=== PATIENT | female | born 1955 | race Caucasian/White ===

== ENCOUNTER 2022-07-14 09:13 | Outpatient (CLI) | payer OTHER, SELFPAY ==
--- NOTE | ~2022-07-14 | MM_ITS ---
EXAMINATION: MM screening princess BI w aneudy HISTORY: Screening mammogram TECHNIQUE: Craniocaudal and mediolateral oblique 3-D tomosynthesis images were obtained and synthetic 2-D images were generated. CAD analysis was submitted and interpreted. COMPARISON: No prior mammogram is available for comparison at this institution. BREAST PARENCHYMAL COMPOSITION: There are scattered areas of fibroglandular density. FINDINGS: RIGHT BREAST: No suspicious mass, calcification, or architectural distortion are identified to sugges t malignancy. LEFT BREAST: An asymmetry is present in the anterior third of the breast in line with the nipple axis on the mediolateral oblique view. IMPRESSION: 1. Left breast asymmetry which may represent the patient's baseline however no comparison is currentl y available. 2. Comparison with prior mammograms is necessary. BI-RADS Category 0: Incomplete: Needs comparison with prior mammograms. Reviewed, dictated and finalized at location A. UREMENT SUPERINTENDENT IMPRESSION: 1. Left breast asymmetry which may represent the patient's baseline however no comparison is currently available. 2. Comparison with prior mammograms is necessary. BI-RADS Category 0: Incomplete: Needs comparison with prior mammograms.
== END 2022-07-14 09:14 | disposition home or self-care (01) ==
PROVIDERS: Visit Provider Obstetrics & Gynecology
DX: Z12.31 Encounter for screening mammogram for malignant neoplasm of breast (principal); R92.8 Other abnormal and inconclusive findings on diagnostic imaging of breast
CPT/HCPCS: 77063; 77067

== ENCOUNTER 2023-03-09 10:37 | Emergency (ER) | payer OTHER, SELFPAY ==
--- NOTE | ~2023-03-09 | CT_ITS ---
EXAMINATION: CT abdomen pelvis w con DATE: 03/09/2023 13:38 INDICATION: Right lower quadrant abdominal pain and leukocytosis TECHNIQUE: Computed tomography (CT) of the abdomen and pelvis was performed with 100 mL Omnipaque-350 intravenous contrast. Automated exposure control and iterative reconstruction technique were employe d. The dose-length product was 511.76 mGy-cm. COMPARISON: None FINDINGS: Mild lingular discoid atelectasis. Heart size is normal. No pericardial or pleural effusion. Cholecys tectomy clips the gallbladder fossa. Mild focal hepatic steatosis at the ligamentum teres. Spleen, pa ncreas and bilateral kidneys are normal. There appears to be fusion across the midline of the otherwi se normal-appearing bilateral adrenal glands. Small bowel and appendix are normal. Sigmoid and descen ding colon predominant diverticulosis with focal prominent wall thickening and surrounding inflammato ry stranding at the mid sigmoid colon consistent with diverticulitis. Bladder, anteverted uterus are normal. Bilateral ovarian follicles a larger on the left measuring 1.7 cm. Small amount of either abeba ctive or physiologic free fluid in the cul-de-sac. No abscess or free intraperitoneal gas. No patholo gically enlarged abdominal or pelvic lymphadenopathy. 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 Mild lumbar and lower thoracic spondylosis. Mild right and moderate left hip osteoarthritis. IMPRESSION: 1. Radiographically uncomplicated sigmoid diverticulitis. Reviewed, dictated and finalized at location A.
[2023-03-09 10:43] VITALS: BP 149/71; PULSE 104; RESP 18; TEMP 36.6; O2SAT 97
[2023-03-09 11:01] LABS: Basophils Percent Auto 0.2 % (0.2-1.2); Eosinophils Percent Auto 0.1 % (0-4.4); Hematocrit 45.6 % (37.0-47.0); Hemoglobin 14.9 g/dL (12.0-15.0); Immature Granulocyte Absolute 0.04 K/mm3 (0.00-0.031); Immature Granulocyte Percent A 0.3 % (0-0.5); Lymphocytes Absolute Auto 1.51 K/mm3 (0.9-3.2); Lymphocytes Percent Auto 11.6 % (18.3-44.2); Mean Corpuscular HGB Conc 32.7 g/dl (32-36); Mean Corpuscular Hemoglobin 30.8 pg (26-34); Mean Corpuscular Volume 94.2 fl (80-100); Mean Platelet Volume 10.4 fl (7.4-10.4); Monocytes Absolute Auto 0.8 K/mm3 (0.1-0.6); Monocytes Percent Auto 6.2 % (2.6-8.5); Neutrophils Absolute Auto 10.6 K/mm3 (1.3-6.7); Neutrophils Percent Auto 81.6 % (45.5-73.1); Platelet Count Result 215 k/mm3 (150-375); Red Blood Count 4.84 M/mm3 (4.2-5.4); Red Cell Distribution Width 12.2 % (11.5-14.5)
[2023-03-09 11:11] LABS: Alanine Aminotransferase 36 U/L (6-35); Albumin Level 4.9 g/dL (3.5-5.1); Alkaline Phosphatase 94 U/L (38-126); Anion Gap 10 mmol/L (8-16); Aspartate Amino Transferase 28 U/L (14-36); Bilirubin,Total 1.2 mg/dL (0.2-1.3); Blood Urea Nitrogen 14 mg/dL (7-17); Calcium 9.5 mg/dL (8.4-10.2); Carbon Dioxide 25 mmol/L (22-30); Chloride 101 mmol/L (98-107); Estimated CRCL calculation 62 ml/min; Estimated Glomerular Filt Rate > 60; Glucose 119 mg/dL (65-110); Lipase 57 U/L (23-300); Potassium 3.8 mmol/L (3.4-5.0); Sodium 136 mmol/L (137-145)
[2023-03-09 11:58] LABS: Appearance Urine Cloudy (Clear); Bacteria Urine None Seen /hpf; Bilirubin Urine Negative (Negative); Blood Urine 1+ (Negative); Color Urine Dark Yellow (Yellow); Glucose Urine UA Negative (Negative); Ketones Urine Trace mg/dL (Negative); Leukocyte Esterase Ur 1+ LEU/UL (Negative); Nitrate Urine Negative (Negative); Non Pathogenic Casts 0-2; Protein Urine 1+ mg/dL (Negative); Specific Grav Ur 1.028 (1.001-1.035); Squamous Epithelial Cell Urine Moderate /hpf (Few)
[2023-03-09 12:04] LABS: Add Urine Microscopic? YES
--- NOTE | 2023-03-09 13:16 | ED.ABDPAIN ---
HPI - Abdominal Pain General Chief Complaint: Abdominal Pain <ALICE Diaz Last Filed: 03/09/23 13:20> Stated Complaint: lower abd pain <ALICE Diaz Last Filed: 03/09/23 13:20> Time Seen by Provider: 03/09/23 13:26 <ALICE Diaz Last Filed: 03/09/23 13:20> Source: patient <ALICE Diaz Last Filed: 03/09/23 13:20> Mode of arrival: ambulatory <ALICE Diaz Filed: 03/09/23 13:20> Limitations: no limitations <ALICE Diaz Filed: 03/09/23 13:20> History of Present Illness HPI narrative: Patient is a 67-year-old female who presents to the ED with lower abdominal pain. Patient reports she developed pain 2 to 3 days ago, became worse last night, intermittent, cramping with sharp stabbing pains. Pain worse in her midline lower abdomen, off to the right side. Nausea last night, no vomiting. Thought she may be constipated and took a Dulcolax. Reported having increased abdominal pain with bowel movement last night. Went to an urgent care this morning was referred here for further evaluation. Denies fevers, dysuria, hematuria, rectal bleeding, melena. Notes history of previous UTIs. Denies history of diverticulitis. <ALICE Diaz Last Filed: 03/09/23 13:20> Related Data Allergies/Adverse Reactions: Allergies Allergy/AdvReac Type Severity Reaction Status Date / Time Sulfa (Sulfonamide Allergy Mild Verified 08/18/10 17:57 Antibiotics) <ALICE Diaz Last Filed: 03/09/23 13:20> Review of Systems Review of Systems: CONSTITUTIONAL: Denies fever, chills, or sweats. GASTROINTESTINAL: See HPI. GENITOURINARY: Denies dysuria or hematuria. MUSCULOSKELETAL: Denies back pain, joint pain, or myalgia. <ALICE Diaz Filed: 03/09/23 13:20> All systems reviewed & are unremarkable except as noted in HPI and below <Renu Guadalupe PA-C - Last Filed: 03/09/23 13:20> Exam Narrative: GENERAL: Well appearing, obese with BMI of 30.2, non-toxic, in no acute distress. RESPIRATORY: Airway patent, respirations nonlabored. Clear to auscultation bilaterally. CARDIOVASCULAR: RRR. Radial pulses 2+ and equal bilaterally. ABDOMINAL: Soft, tenderness in suprapubic region and right lower quadrant, reproducing pain. Normoactive BS. MUSCULOSKELETAL: Moves all extremities. No gross deformities. NEURO: A&O X3. Speech clear. No ataxic movements. PSYCHIATRIC: Appropriate mood and affect. Normal interaction. <Renu Guadalupe PA-C - Last Filed: 03/09/23 13:20> GENERAL: Well appearing, obese with BMI of 30.2, non-toxic, in no acute distress. RESPIRATORY: Airway patent, respirations nonlabored. Clear to auscultation bilaterally. CARDIOVASCULAR: RRR. Radial pulses 2+ and equal bilaterally. ABDOMINAL: Soft, tenderness in suprapubic region and right lower quadrant, reproducing pain. Normoactive BS. MUSCULOSKELETAL: Moves all extremities. No gross deformities. NEURO: A&O X3. Speech clear. No ataxic movements. PSYCHIATRIC: Appropriate mood and affect. Normal interaction. Physician exam GENERAL: Well-appearing, well-nourished, and in no acute distress. HEAD: Normocephalic, atraumatic. CHEST: Clear to auscultation. No respiratory distress. HEART: Regular rate and rhythm. Normal peripheral pulses. ABDOMEN: Soft, tender to palpation right lower quadrant without guarding, nondistended. EXTREMITIES: Normal range of motion. No edema. SKIN: Warm, dry, no rash. NEURO: Alert and oriented x3. PSYCH: Normal mood and affect. <Jeet Muñoz MD - Last Filed: 03/09/23 19:26> Course Course Emergency Course: Patient educated on diagnosis and treatment plan. Verbalized understanding. Discharge home. <Jeet Muñoz MD - Last Filed: 03/09/23 19:26> Vital Signs Vital signs: Vital Signs Temperature 97.9 F 03/09/23 10:43 Puls
[2023-03-09 15:14] VITALS: BP 114/58; PULSE 94; RESP 18; O2SAT 98
== END 2023-03-09 15:18 | disposition home or self-care (01) ==
PROVIDERS: Emergency Provider Emergency Medicine
DX: K57.32 Diverticulitis of large intestine without perforation or abscess without bleeding (principal)
CPT/HCPCS: 36415; 74177; 80053; 81001; 83690; 85025; 85055; 87086; 87088; 99284; Q9967

== ENCOUNTER 2023-10-05 09:41 | Outpatient (CLI) | payer OTHER, SELFPAY ==
--- NOTE | ~2023-10-05 | MM_ITS ---
EXAMINATION: MM screening princess BI w aneudy HISTORY: Screening TECHNIQUE: Craniocaudal and mediolateral oblique 3-D tomosynthesis images were obtained and synthetic 2-D images were generated. CAD analysis was submitted and interpreted. COMPARISON: Comparison to multiple prior studies sequentially, with oldest reviewed study dated 04/10. BREAST PARENCHYMAL COMPOSITION: Not dense: There are scattered areas of fibroglandular density. FINDINGS: There is no evidence of suspicious mass, calcification, or architectural distortion to sugg est malignancy in either breast. There has been no suspicious interval change. IMPRESSION: 1. No mammographic evidence of malignancy. 2. Recommend routine screening mammography in one year. BI-RADS Category 1: Negative Reviewed, dictated and finalized at location B.
== END 2023-10-05 09:42 | disposition home or self-care (01) ==
PROVIDERS: Visit Provider Obstetrics & Gynecology
DX: Z12.31 Encounter for screening mammogram for malignant neoplasm of breast (principal)
CPT/HCPCS: 77063; 77067

== ENCOUNTER 2024-05-27 15:39 | Emergency (ER) | payer OTHER, SELFPAY ==
[2024-05-27 15:40] VITALS: BP 157/80; PULSE 110; RESP 18; TEMP 36.7; O2SAT 100
[2024-05-27 15:53] VITALS: BP 153/76; PULSE 108; RESP 18; TEMP 36.8; O2SAT 96
[2024-05-27] MEDS: OXYMETAZOLINE HCL 0.05% NAS 15 ML BTL (*BKC) 1 SPRAY NASAL (18:40)
[2024-05-27 18:43] VITALS: BP 144/77; PULSE 94; RESP 16; O2SAT 98
--- NOTE | 2024-05-27 19:12 | ED_ITS ---
HPI - Epistaxis General Chief complaint: Epistaxis Stated complaint: nosebleed Time Seen by Provider: 05/27/24 17:11 History of Present Illness HPI Narrative: Patient is a 69-year-old female who presents to the ER with complaints of a nosebleed. She reports her nose bleed started around 3:00 p.m. Pt reports she blew her nose and it started gushing. She reports she pinched her nose her approximately 15 minutes in the bleeding continued so she went to urgent care. When she went to urgent care they advised her to come to the ER. Patient denies being on any blood thinners or having any bleeding disorders. She denies any headache, recent signs/symptoms of infection, sinus pain. Related Data Allergies Allergy/AdvReac Type Severity Reaction Status Date / Time Sulfa (Sulfonamide Allergy Mild Itching Verified 05/27/24 18:43 Antibiotics) Review of Systems Review of Systems: All systems reviewed & are unremarkable except as noted in HPI and below Exam Narrative: GENERAL: Well appearing, well-nourished, non-toxic, in no acute distress. HEAD: Normocephalic, atraumatic. NECK: Supple. No adenopathy, no masses. RESPIRATORY: Airway patent, respirations nonlabored. Clear to auscultation bilaterally, no rales, rhonchi, wheezing. CARDIOVASCULAR: Regular rate and rhythm without murmurs, rubs, or gallops. Peripheral pulses 2+ and equal bilaterally. ABDOMINAL: Soft, nontender, nondistended, no hepatosplenomegaly. Normoactive BS. MUSCULOSKELETAL: Moves all extremities. Strength/ROM intact without gross deformities. SKIN: Warm, dry, normal color. No rashes. NEURO: A&O X3. Speech clear. Cranial nerves II-XII grossly intact. Steady gait. No ataxic movements. PSYCHIATRIC: Appropriate mood and affect. Normal interaction. Course Vital Signs Vital signs: Vital Signs Temperature 36.7 C 05/27/24 15:40 Pulse Rate 110 H 05/27/24 15:40 Respiratory Rate 18 05/27/24 15:40 Blood Pressure 157/80 H 05/27/24 15:40 Pulse Oximetry 100 05/27/24 15:40 Temperature 36.8 C 05/27/24 15:53 Pulse Rate 94 05/27/24 18:43 Respiratory Rate 16 05/27/24 18:43 Blood Pressure 144/77 H 05/27/24 18:43 Pulse Oximetry 98 05/27/24 18:43 MDM - Epistaxis MDM Narrative Medical decision making narrative: Patient is a 69-year-old female who presents to the ER with complaints of a nosebleed. She reports her nose bleed started around 3:00 p.m. Pt reports she blew her nose and it started gushing. She reports she pinched her nose her approximately 15 minutes in the bleeding continued so she went to urgent care. When she went to urgent care they advised her to come to the ER. Patient denies being on any blood thinners or having any bleeding disorders. She denies any headache, recent signs/symptoms of infection, sinus pain. Labs Ordered: None necessary Imaging Ordered: None necessary Diagnosis: epistaxis Consults: None necessary Patient Education/Shared MDM: Patient's nasal clip was removed by [employer]. Bleeding has subsided. She will be given a dose of Afrin here in the ER. Patient given extensive education regarding care for epistaxis at home. She was advised to use Afrin at home if her nose starts bleeding again. Patient should follow-up with her primary care provider and return to the ER with any worsening symptoms. She verbalizes understanding and is in agreement with plan. Vital signs stable at time of discharge. All questions answered. Differential Diagnosis Differential diagnosis: Likely anterior epistaxis and posterior epistaxis Discharge Plan Discharge Clinical Impression: Epistaxis Patient Disposition: Home, Self-Care Condition: Stable Instructions: Antibiotic Form, Nosebleed (ED) Additional Instructions: Please return to the ER with an worsening symptoms. Follow-up with primary care provider in the next 2-3 days. Take all medications as prescribed. Patient Language: Portuguese Prescriptions: New oxymetazoline [12 Hour Nasal Relief Cocoa] 0.05 % spray,non-aerosol 2 spray intranasal Q12H PRN (Reason: nasal congestion) 4 Days Qty: 22 0RF No Action amoxicillin-pot clavulanate 875-125 mg tablet 1 tablet PO Q12H Qty: 20 0RF Follow-up/Referrals: PHYSICIAN NOT ON STAFF,NONSTAFF [Primary Care Provider] - Time of Disposition: 19:19
--- OUTSIDE RECORDS SUMMARY | 2024-06-01 09:07 | XMS_ITS | CONTINUITY OF CARE DOCUMENT ---
Author Name yen barlow Address Unknown Organization [facility] Address [address] [place] [address] [place] [address] Phone [phone] Care Team Providers Care Cigar Wrapper Tender Automatic Name Role Phone yen barlow Unavailable Unavailable INSURANCE PROVIDERS Payer name Policy type / Coverage type Ana red republican ID [facility] [id number]
--- OUTSIDE RECORDS SUMMARY | 2024-06-01 09:07 | XMS_ITS | Clinical Summary ---
Author Organization [facility] Address [address] [place] [address] Care Team Providers Care Manager Private Name Role Phone Juancho Domínguez MD Primary Care Provider [phone] Allergies Active Allergy Reactions Criticality Noted Date Comments Sulfa (Sulfonamide Antibiotics) Rash Low 06/11 Sulfamethoxazole-Trimethoprim Rash Low 2016 Medications cholecalciferol, vitamin D3, 1,000 unitIndications:dos e unknown Take 1,000 Units by mouth. Active levothyroxine 50 mcg tabletIndications:S ubclinical hypothyroidism take 1 tablet by mouth every day 100 Tablet 3 4 Active alendronate (FOSAMAX) 70 mg tablet TAKE 1 TABLET EVERY 7 DAYS. EMPTY STOMACH BEFORE OTHER MEDS,WITH 8OZ OF WATER, STAY UPRIGHT 30 MIN 14 Tablet 3 4 Active Active Problems Problem Noted Date Diagnosed Date Obesity (BMI 30.0-34.9) 03/16/2024 Assessment & Plan (03/16/2024 1:36 PM TRADE UNION SECRETARY): Suboptimal, Heart healthy diet and routine physical exercise encouraged. History of periodontal disease 03/16/2024 Overview (03/16/2024): Cleanings Q3 mos Osteoporosis 03/02/2023 Overview (03/02/2023): Dexa 02/2023, -2.5 hip right Assessment & Plan (03/16/2024 1:35 PM TRADE UNION SECRETARY): Stable, continue fosamax, yobani/vit D. Prediabetes 12/11/2019 Assessment & Plan (03/16/2024 1:35 PM TRADE UNION SECRETARY): Stable, Due for routine labs. Heart healthy diet and routine physical exercise encouraged. Gastroesophageal reflux disease 06/08/2018 Assessment & Plan (03/16/2024 1:35 PM TRADE UNION SECRETARY): Stable. Remains off PPI. Assessment & Plan (01/23/2022 5:34 PM CDT): Stable. Off PPI. Screening for colon cancer 02/10/2018 Overview (02/10/2018): 02/10/18- Colonoscopy: Negative for polyps. Repeat in 10 years. Localized osteoarthritis of right knee 8 Assessment & Plan (03/16/2024 1:35 PM TRADE UNION SECRETARY): Managed by orthopedics, doing well with low impact exercises. Subclinical hypothyroidism 02/04/2017 Assessment & Plan (03/16/2024 1:35 PM TRADE UNION SECRETARY): Stable. Continue levothyroxine, follow-up TSH. Assessment & Plan (02/12/2023 2:41 PM CDT): Stable. Continue levothyroxine, follow-up TSH. Assessment & Plan (01/23/2022 5:34 PM CDT): Stable. Follow-up TSH Elevated serum creatinine 02/04/2017 Assessment & Plan (03/16/2024 1:34 PM TRADE UNION SECRETARY): Robyn, will monitor labs. Fatty liver 10/08/2016 Assessment & Plan (03/16/2024 1:35 PM TRADE UNION SECRETARY): Robyn, will monitor labs. Heart healthy diet and routine physical exercise encouraged. Vitamin D deficiency 10/08/2016 Assessment & Plan (03/16/2024 1:36 PM TRADE UNION SECRETARY): Stable, continue supplement. Resolved Problems Problem Noted Date Diagnosed Date Resolved Date Stage 3a chronic kidney disease 01/23/2022 01/23/2022 Screening, lipid 01/31/2018 01/31/2018 Impaired fasting glucose 02/04/201711/2023 Encounters Date Type Department Care Team Description 05/30/2024 External Device Data [facility]STRACTION Provider, Abstract 05/24/2024 External Device Data [facility] Provider, Abstract 04/11/2024 External Device Data [facility] Provider, Abstract 03/16/2024 1:00 PM TRADE UNION SECRETARY Office Visit [facility] [place] [address] [place] [phone] Carla Tang, MICHAEL Medicare annual wellness visit, subsequent (Primary Dx); Need for influenza vaccination; Elevated serum creatinine; Fatty liver; Gastroesophageal reflux disease, unspecified whether esophagitis present; Osteoporosis, unspecified osteoporosis type, unspecified pathological fracture presence; Prediabetes; Subclinical hypothyroidism; Vitamin D deficiency; Obesity (BMI 30.0-34.9); Need for RSV immunization; Localized osteoarthritis of right knee 03/16/2024 Orders Only [facility] [place] [address] [place] [address] [place] [phone] Provider, Abstract 03/13/2024 External Device Data [facility] ABSTRACTION Provider, Abstract from Last 3 Months Immunizations Immunization Administration Dates Next Due (ADACEL/BOOSTRIX)(10 YR UP) TDAP VACCINE, 0.5ML, IM 02/07/2015,03/20/2014 (PFIZER)(12 YR UP) COVID-19 VACCINE - EMERGENCY USE AUTHORIZATION, MRNA, [id number](PF) 30 MCG/0.3 ML IM SUSP 02/19/2021,08/06/2020,07/16/2020 (PREVNAR 20)(6 WKS UP) PNEUM OCOCCAL CONJUGATE VACCINE 20-VALENT (PCV20), POLYSACCHARIDE [id number] CONJUGATE, ADJUVANT 0.5 ML (PF) IM 02/12/2023 (SHINGRIX)(50 YRS UP) ZOSTER VACCINE RECOMBINANT, 0.5 ML, IM 12/11/2019 INFLUENZA VACCINE HIGH DOSE QUADRIVALENT 65 YR UP PF IM 02/12/2023 INFLUENZA VACCINE HIGH DOSE TRIVALENT SPLIT VIRUS, (65 YR UP), 0.5ML (PF), IM 03/16/2024 INFLUENZA VACCINE QUADRIVALE NT 3 YR UP PF IM 04/09/2017 INFLUENZA VACCINE QUADRIVALE NT 6 MOS UP IM 01/31/2018 INFLUENZA VACCINE QUADRIVALE NT 6 MOS UP PF IM 01/20/2022,02/13/2020,02/07/2019 Influenza Seasonal Unspecifi ed Formulation IM 01/20/2022,02/11/2021,02/13/2020,02/07,01/31/2018,04/09/2016,03/20/2014 Family History Medical History Relation Name Comments Hypertension Brother Liver Disease Brother Hypertension Father Thyroid Disease Mother Hypertension Sister Thyroid Disease Sister Colon Cancer Neg Hx Relation Name Status Comments Brother Father Mother Sister Social History Tobacco Use Types Packs/Day Years Used Date Smoking Tobacco: Never Smokeless Tobacco: Never Tobacco Cessation:Counseling Given: Not Answered Alcohol Use Standard Drinks/Week Comments No 0 (1 standard drink = 0.6 oz pur e alcohol) Comments No Sex and Gender Information Value Date Recorded Sex Assigned at Not on file Legal Sex Female 3:19 PM CDT Gender Identity Not on file Sexual Orientation Not on file Occupation Industry Job Start Date Job End Date retired Not on file Not on file Not on file Last Filed Vital Signs Vital Sign Reading Time Taken Comments Blood Pressure 124/82 03/16/2024 1:01 PM TRADE UNION SECRETARY Pulse 96 03/16/2024 1:01 PM TRADE UNION SECRETARY Temperature 36.4 ??C (97.5 ??F) 03/16/2024 1:01 PM CS T Respiratory Rate 18 03/16/2024 1:01 PM TRADE UNION SECRETARY Oxygen Saturation 97% 03/16/2024 1:01 PM TRADE UNION SECRETARY Inhaled Oxygen Concentration - - Weight 81.4 kg (179 lb 6.4 oz) 03/16/2024 1:01 P M TRADE UNION SECRETARY Height 162.6 cm (5' 4 ) 03/16/2024 1:01 PM TRADE UNION SECRETARY Body Mass Index 30.79 03/16/2024 1:01 PM TRADE UNION SECRETARY Plan of Treatment Health Maintenance Due Date Last Done Comments FIT/ DNA Q 3 YEARS (AUTO ORDER) 1975 FIT/FOBT Q 1 YEAR (AUTO ORDER) 1975 FLEX SIG/CT COLONOGRAPHY Q 5 YEARS (AUTO ORDER) 1975 FIT-DNA Q 3 years 2002 FIT/FOBT Q 1 year 2002 Flex Sig/CT Colonography Q 5 years 2002 RSV VACCINE (60+ or ) (1 - Risk 60-74 years 1-dose series) 2017 ZOSTER VACCINE (2 of 2) 02/05/2020 12/11/2019 COVID-19 Vaccine (2023-2 5 season) 2024 01/28/2022, 02/19/2021, 08/06/2020, Additional history exists Preventative Visit- Commercial 05/10/2024 1 05/16/2023, 01/20/2022, 12/16/2020, Additional history exists BREAST CANCER SCREENING 10/04/2024 10/05/19 24, 04/28/2019, 04/28/2019, Additional history exists DTAP/TDAP/TD VACCINES (3 - T d or Tdap) 02/07/2025 02/07/2015, 03/20/2014 Pre-Diabetes and Diabetes Screening 03/17/2027 03/17/2024, 02/13/2023, 01/20/2022, Additional history exists COLORECTAL CANCER SCREENING (AUTO ORDER) 02/11/2028 02/10/2018, 02/10/2018 COLORECTAL SCREENING 02/11/2028 02/10/2018, 02/10/2018, 02/08/2008 Colorectal Cancer Screening (AUTO ORDER) 02/11/2028 Colorectal Cancer Screening 02/11/2028 PNEUMOCOCCAL VACCINE 65+ YEARS Completed 02/12/2023 OSTEOPOROSIS SCREENING Completed 02/22/2023 INFLUENZA VACCINE Completed 03/16/2024, , 01/20/2022, Additional history exists Procedures Procedure Name Priority Date/Time Associated Diagnosis Comments VITAMIN D 25 HYDROXY Routine 03/17/2024 9:52 AM TRADE UNION SECRETARY Vitamin D deficiency Obesity (BMI 30.0-34.9) CBC WITH DIFFERENTIAL Routine 03/17/2024 9:52 AM TRADE UNION SECRETARY Obesity (BMI 30.0-34.9) TSH REFLEXIVE Routine 03/17/2024 9:52 AM TRADE UNION SECRETARY Subclinical hypothyroidism Obesity (BMI 30.0-34.9) HEMOGLOBIN A1C Routine 03/17/2024 9:52 AM TRADE UNION SECRETARY Prediabetes Obesity (BMI 30.0-34.9) COMPREHENSIVE METABOLIC PANEL Routine 03/17/2024 9:52 AM TRADE UNION SECRETARY Elevated serum creatinine Fatty liver Prediabetes Obesity (BMI 30.0-34.9) LIPID RFLX Routine 03/17/2024 9:52 AM TRADE UNION SECRETARY Prediabetes Obesity (BMI 30.0-34.9) MAMMO DIAG BILAT 3D URIEL W OR WO CAD Routine 10/05/2023 3:53 PM CDT XR DEXA BONE DENSITY AXIAL 1 OR MORE SITES Routine 02/22/2023 9:46 AM CDT Post-menopausal COLONOSCOPY REPORT 02/10/2018 8: 39 AM CDT from Last 3 Months or Most Recently Relevant to Health Maintenance Results * (ABNORMAL) LIPID RFLX (03/17/2024 9:52 AM TRADE UNION SECRETARY) CHOLESTEROL 150 <200 mg/dL [facility] HDL 49(L) > OR = 50 mg/dL [facility] TRIGLYCERIDE 91 <150 mg/dL Lida Rivas LDL CALCULATED 82 mg/dL (calc) Lida Rivas Comment: Reference range: <100 Desirable range <100 mg/dL for primary prevention; ?? <70 mg/dL for patients with CHD or diabetic patients with > or = 2 CHD risk factors. LDL-C is now calculated using the Era calculation, which is a validated novel method providing better accuracy than the Friedewald equation in the estimation of LDL-C. Dameon FRANKLIN et al. YOSHI. 2013;310(19): 1966-7688 (http://education.HuJe labs.Netology/faq/OBZ542) CHOL/HDL RATIO 3.1 <5.0 (calc) [facility]ung Rivas NON-HDL CHOLESTEROL 101 <130 mg/dL (calc) [facility] Comment: For patients with diabetes plus 1 major ASCVD risk factor, treating to a non-HDL-C goal of <100 mg/dL (LDL-C of <70 mg/dL) is considered a therapeutic option. Test Performed at: [place] [address] [place] ??[phone] [facility] Blood 03/17/2024 9:52 AM TRADE UNION SECRETARY 03/17/2024 9:54 AM TRADE UNION SECRETARY Carla Tang [facility] CHEMISTRY ORDERABLES Final Result Performing Organization Address City/[facility]/ZIP Code Phone Number [facility] [phone] [place] [address] [place] [address] * TSH REFLEXIVE (03/17/2024 9:52 AM TRADE UNION SECRETARY) Pathologist [facility] TSH 2.29 0.40 - 4.50 mIU/L [facility] jung Rivas Comment: FASTING:YES FASTING: YES Test Performed at: [place] [address] [place] ??[phone] [facility] Blood 03/17/2024 9:52 AM TRADE UNION SECRETARY 03/17/2024 9:54 AM TRADE UNION SECRETARY Carla Tang [facility] CHEMISTRY ORDERABLES Final Result [facility] [phone] [place] [address] [place] [address] * CBC WITH DIFFERENTIAL (03/17/2024 9:52 AM TRADE UNION SECRETARY) WBC 5.2 3.8 - 10.8 Thousand/u L [facility] jung Rivas RBC 4.57 3.80 - 5.10 Million/uL [facility] HEMOGLOBIN 14.2 11.7 - 15.5 g/dL [facility] jung Rivas HEMATOCRIT 43.7 35.0 - 45.0 % [facility] jung Rivas MCV 95.6 80.0 - 100.0 fL [facility] MCH 31.1 27.0 - 33.0 pg [facility] MCHC 32.5 32.0 - 36.0 g/dL [facility] t Rob Comment: For adults, a slight decrease in the calculated MCHC value (in the range of 30 to 32 g/dL) is most likely not clinically significant; however, it should be interpreted with caution in correlation with other red cell parameters and the patient's clinical condition. RDW 12.4 11.0 - 15.0 % [facility] PLATELETS 193 140 - 400 Thousand/u L [facility] MPV 10.9 7.5 - 12.5 fL [facility] NEUTROPHIL ABSOLUTE 3,089 1,500 - 7,800 cells/uL [facility] Rob LYMPHOCYTE ABSOLUTE 1,544 850 - 3,900 cells/uL [facility] Rob MONOCYTE ABSOLUTE 478 200 - 950 cells/uL [facility] EOSINOPHIL ABSOLUTE 68 15 - 500 cells/uL [facility] Rob BASOPHILS ABSOLUTE 21 0 - 200 cells/uL [facility] Rob NEUTROPHIL 59.4 % [facility] LYMPHOCYTES 29.7 % [facility] MONOCYTE 9.2 % [facility] EOSINOPHILS 1.3 % [facility] BASOPHILS 0.4 % [facility] Comment: FASTING:YES FASTING: YES Test Performed at: [place] [facility] [address] [place], [place] ??[phone] Deja Hurtado Blood 03/17/2024 9:52 AM TRADE UNION SECRETARY 03/17/2024 9:54 AM TRADE UNION SECRETARY us Carla Tang [employer]ORER S[employer] HEMATOLOGY ORDERABLE S Final Result [facility] [phone] [place] [facility] [address] [place] [address] * VITAMIN D 25 HYDROXY (03/17/2024 9:52 AM TRADE UNION SECRETARY) VITAMIN D, 25 OH, TOTAL 47 30 - 100 ng/mL [facility] Comment: Vitamin D Status ? 25-OH Vitamin D: Deficiency: ?<20 ng/mL Insufficiency: ? 20 - 29 ng/mL Optimal: ? > or = 30 ng/mL For 25-OH Vitamin D testing on patients on D2-supplementation and patients for whom quantitation of D2 and D3 fractions is required, the QuestAssureD(TM) 25-OH VIT D, (D2,D3), LC/MS/MS is recommended: order code 72211 (patients >2yrs). See Note 1 Note 1 For additional information, please refer to http://education.Evomail/faq/IGH550 (This link is being provided for informational/ educational purposes only.) FASTING:YES FASTING: YES Test Performed at: [facility] [address] [place] [address] ??[phone] Deja Vogt MD Blood 03/17/2024 9:52 AM TRADE UNION SECRETARY 03/17/2024 9:54 AM TRADE UNION SECRETARY Carla Tang LABORER SYR[employer]ACHINE CHEMISTRY ORDERABLES Final Result [facility] [phone] [facility] HospitalH[facility] [address] * HEMOGLOBIN A1C (03/17/2024 9:52 AM TRADE UNION SECRETARY) HEMOGLOBIN A1C 5.6 <5.7 % of total Hgb [facility] Comment: For the purpose of screening for the presence of diabetes: <5.7% ? Consistent with the absence of diabetes 5.7-6.4% ?Consistent with increased risk for diabetes ?(prediabetes) > or =6.5% ??Consistent with diabetes This assay result is consistent with a decreased risk of diabetes. Currently, no consensus exists regarding use of hemoglobin A1c for diagnosis of diabetes in children. According to [place] Diabetes Association (ADA) guidelines, hemoglobin A1c <7.0% represents optimal control in non- diabetic patients. Different metrics may apply to specific patient populations. Standards of Medical Care in Diabetes(ADA). ?? ESTIMATED AVERAGE GLUCOSE (MG/DL) 114 mg/dL Lida Rivas ESTIMATED AVERAGE GLUCOSE (MMOL/L) 6.3 mmol/L [facility] Comment: FASTING:YES FASTING: YES Test Performed at: [place] [facility] [address] [place] ??[phone] MariferDouglas Vogt Blood 03/17/2024 9:52 AM TRADE UNION SECRETARY 03/17/2024 9:54 AM TRADE UNION SECRETARY Carla Tang LABORER SYR[employer] MACHINE CHEMISTRY ORDERABLES Final Result [facility] [phone] [place] [facility] [place] [address] [place] [address] * COMPREHENSIVE METABOLIC PANEL (03/17/2024 9:52 AM TRADE UNION SECRETARY) GLUCOSE 99 65 - 99 mg/dL Lida Rivas Comment: ? Fasting reference interval BUN 19 7 - 25 mg/dL [facility] CREATININE 0.96 0.50 - 1.05 mg/dL [facility] GFR 65 > OR = 60 mL/min/1. 73m2 [facility] BUN/CREAT RATIO SEE NOTE: (calc) [facility] Comment: ?? Not Reported: BUN and Creatinine are within ?? reference range. ? SODIUM 140 135 - 146 mmol/L [facility] POTASSIUM 5.0 3.5 - 5.3 mmol/L [facility] CHLORIDE 105 98 - 110 mmol/L [facility] CO2 28 20 - 32 mmol/L [facility] CALCIUM 9.4 8.6 - 10.4 mg/dL [facility] TOTAL PROTEIN 7.4 6.1 - 8.1 g/dL [facility] ALBUMIN 4.5 3.6 - 5.1 g/dL [facility] Rob GLOBULIN 2.9 1.9 - 3.7 g/dL (calc) [facility] Rob ALBUMIN/GLOBULIN RATIO 1.6 1.0 - 2.5 (calc) [facility] jung Rivas BILIRUBIN TOTAL 0.7 0.2 - 1.2 mg/dL [facility] Rob ALKALINE PHOSPHATASE 47 37 - 153 U/L [facility] Rob AST 18 10 - 35 U/L [facility] Rob ALT 24 6 - 29 U/L [facility] Rob Comment: FASTING:YES FASTING: YES Test Performed at: [place] [address] [place], [place] ??[phone] Deja Vogt Blood 03/17/2024 9:52 AM TRADE UNION SECRETARY 03/17/2024 9:54 AM TRADE UNION SECRETARY Carla Tang LABORER SYR[employer] MACHINE CHEMISTRY ORDERABLES Final Result [facility] [phone] [place] [address] [place] [address] * MAMMO 3D URIEL DIAGNOSTIC BILAT W OR WO CAD (10/05/2023 3:53 PM CDT) Anatomical Region Laterality Modality Breast Bilateral Other Abstract Provider MAMMO ORDERABLES Final Result * (ABNORMAL) XR DEXA BONE DENSITY AXIAL 1 OR MORE SITES (02/22/2023 9:46 AM CDT) T-SCORE FEMORAL NECK (LEFT) -1.50(A) -1.0 - 1.0 INTERFACE SYSTEM T-SCORE FEMORAL NECK (RIGHT) -2.50(A) -1.0 - 1.0 INTERFACE SYSTEM T-SCORE SPINE 0.20 -1.0 - 1.0 INTER FACE SYSTEM Anatomical Region Laterality Modality Computed Radiogr aphy 02/22/2023 9:46 AM CDT Impressions 02/22/2023 12:48 PM CDT FINDINGS/IMPRESSION: Osteoporosis with a lowest T score of -2.5. Fracture risk is high. ?? FRAX: ?? 10 year probability of major osteoporotic fracture is 12.8 %. ?? 10 year probability of hip fracture is 2.7 %. ?? Please refer to the full report available in [facility] under the PACS Images tab. ??If a faxed copy is needed, please call [phone]. ?? DICTATION LOCATION: [facility], [place], [facility] Narrative 02/22/2023 12:48 PM CDT SUMMARY DEXA REPORT ?? DATE: 02/22/2023 9:46 AM INDICATION: Postmenopausal Procedure Note Josi Velarde MD - 02/22/2023 SUMMARY DEXA REPORT DATE: 02/22/2023 9:46 AM INDICATION: Postmenopausal FINDINGS/IMPRESSION: Osteoporosis with a lowest T score of -2.5. Fracture risk is high. FRAX: 10 year probability of major osteoporotic fracture is 12.8 %. 10 year probability of hip fracture is 2.7 %. Please refer to the full report available in [facility] under the PACS Images tab. If a faxed copy is needed, please call [phone]. DICTATION LOCATION: [facility] [place] us Juancho Domínguez MD DIAGNOSTIC IMAGING ORDERABLES Fi nal Result * COLONOSCOPY REPORT (02/10/2018 8:39 AM CDT) Narrative Procedure Note Jose Miguel Junior MD - 02/10/2018 8:38 AM CDT [facility] Patient Name: Oneida Barreto Procedure Date: 02/10/2018 Date of : 1955 Admit Type: Outpatient Age: 62 Attending MD: Jose Miguel Junior MD Procedure: Colonoscopy Indications: Increased risk screening: personal history of colonic polyps Providers: Jose Miguel Junior MD Referring MD: Juancho Domínguez MD Medicines: Monitored Anesthesia Care Procedure: Informed consent was obtained for the procedure, including moderate sedation after risks were discussed. Based on the pre-procedure assessment, including review of the patient's medical history, medications, allergies, and review of systems, the patient was deemed to be an appropriate candidate for sedation. A timeout was performed. Continuous ECG monitoring, pulse oximetry, blood pressure monitoring, and direct observation were performed. The colonoscope was introduced through the anus and advanced to the cecum, identified by appendiceal orifice and ileocecal valve. The colonoscopy was performed with ease. The patient tolerated the procedure well. The quality of the bowel preparation was excellent. Estimated Blood Loss: None. Findings: Small internal hemorrhoids were found during retroflexion. Many small-mouthed diverticula were found in the sigmoid colon and descending colon. The examination was otherwise negative. No polyps were seen. The cecum and ileocecal valve were normal. Complications: No immediate complications. Impression: - Small internal hemorrhoids. - Diverticulosis in the sigmoid colon and in the descending colon. - No polyps seen. Recommendation: - High fiber diet. - Continue present medications. - Repeat colonoscopy in 10 years for screening purposes. Jose Miguel Junior MD 02/10/2018 8:38:36 AM This report has been signed electronically. Number of Addenda: 0 Procedure Date: 02/10/2018 8:11:38 AM [address] [place] [address] Jose Miguel Junior MD GI PROCEDURE ORDERABLES Final Re sult from Last 3 Months or Most Recently Relevant to Health Maintenance Insurance [employer] Commercial [facility] Advance Directives For more information, please contact: [phone] * Full Code (Latest Code Status on File) Date Activated Date Inactivated Comments 07/07/2018 7:06 AM 07/07/2018 11:09 AM * Full Code Date Activated Date Inactivated Comments 02/10/2018 7:34 AM 02/10/2018 11:59 AM Care Teams Manager Private Relationship Specialty Start Date End Date Juancho Domínguez MD PCP - General Family Practice 10/08/16
--- OUTSIDE RECORDS SUMMARY | 2024-06-01 09:20 | XMS_ITS | CONTINUITY OF CARE DOCUMENT ---
Author Name yen barlow Address Unknown Organization [facility] Address [address] [place] [address] Phone [phone] Care Team Providers Care Gang Drill Operator Name Role Phone yen barlow Unavailable Unavailable INSURANCE PROVIDERS Payer name Policy type / Coverage type Ana red alliance party ID [facility] [id number]
== END 2024-05-27 19:27 | disposition home or self-care (01) ==
PROVIDERS: Emergency Provider Registered Nurse
DX: R04.0 Epistaxis (principal)
CPT/HCPCS: 99283; A9270

== ENCOUNTER 2024-10-24 14:28 | Outpatient (CLI) | payer OTHER, SELFPAY ==
--- NOTE | ~2024-10-24 | MM_ITS ---
EXAMINATION: MM screening princess BI w aneudy HISTORY: Screening TECHNIQUE: Craniocaudal and mediolateral oblique 3-D tomosynthesis images were obtained and synthetic 2-D images were generated. CAD analysis was submitted and interpreted. COMPARISON: Comparison to multiple prior studies sequentially, with oldest reviewed study dated 04/10. BREAST PARENCHYMAL COMPOSITION: Not dense: There are scattered areas of fibroglandular density. FINDINGS: There is no evidence of suspicious mass, calcification, or architectural distortion to sugg est malignancy in either breast. There has been no suspicious interval change. IMPRESSION: 1. No mammographic evidence of malignancy. 2. Recommend routine screening mammography in one year. BI-RADS Category 1: Negative Reviewed, dictated and finalized at location A.
--- OUTSIDE RECORDS SUMMARY | 2024-10-24 15:23 | XMS_ITS | Clinical Summary ---
Author Organization [facility] Address [address] [place] [address] Care Team Providers Care Insulation Nozzleman Name Role Phone Juancho Domínguez MD Primary Care Provider [phone] Allergies Active Allergy Reactions Criticality Noted Date Comments Sulfa (Sulfonamide Antibiotics) Rash Low 06/11 Sulfamethoxazole-Trimethoprim Rash Low 2016 Medications cholecalciferol, vitamin D3, 1,000 unitIndications:d ose unknown Take 1,000 Units by mouth. Active alendronate (FOSAMAX) 70 mg tablet TAKE 1 TABLET EVERY 7 DAYS. EMPTY STOMACH BEFORE OTHER MEDS,WITH 8OZ OF WATER, STAY UPRIGHT 30 MIN 14 Tablet 3 01/24/20 24 Active oxymetazoline (AFRIN) 0.05 % [place], Non-Aerosol Administer 2 Sprays in each nostril 2 times daily. Up to 3 days Active levothyroxine 50 mcg tabletIndications :Subclinical hypothyroidism TAKE 1 TABLET BY MOUTH EVERY DAY 100 Tablet 3 10/18/19 25 Active levothyroxine 50 mcg tabletIndications :Subclinical hypothyroidism take 1 tablet by mouth every day 100 Tablet 3 11/05/19 24 2024 Discontinued Active Problems Problem Noted Date Diagnosed Date Obesity (BMI 30.0-34.9) 03/16/2024 Assessment & Plan (03/16/2024 1:36 PM BOOTH MANAGER): Suboptimal, Heart healthy diet and routine physical exercise encouraged. History of periodontal disease 03/16/2024 Overview (03/16/2024): Cleanings Q3 mos Osteoporosis 03/02/2023 Overview (03/02/2023): Dexa 02/2023, -2.5 hip right Assessment & Plan (03/16/2024 1:35 PM BOOTH MANAGER): Stable, continue fosamax, yobani/vit D. Prediabetes 12/11/2019 Assessment & Plan (03/16/2024 1:35 PM BOOTH MANAGER): Stable, Due for routine labs. Heart healthy diet and routine physical exercise encouraged. Gastroesophageal reflux disease 06/08/2018 Assessment & Plan (03/16/2024 1:35 PM BOOTH MANAGER): Stable. Remains off PPI. Assessment & Plan (01/23/2022 5:34 PM CDT): Stable. Off PPI. Screening for colon cancer 02/10/2018 Overview (02/10/2018): 02/10/18- Colonoscopy: Negative for polyps. Repeat in 10 years. Localized osteoarthritis of right knee 8 Assessment & Plan (03/16/2024 1:35 PM BOOTH MANAGER): Managed by orthopedics, doing well with low impact exercises. Subclinical hypothyroidism 02/04/2017 Assessment & Plan (03/16/2024 1:35 PM BOOTH MANAGER): Stable. Continue levothyroxine, follow-up TSH. Assessment & Plan (02/12/2023 2:41 PM CDT): Stable. Continue levothyroxine, follow-up TSH. Assessment & Plan (01/23/2022 5:34 PM CDT): Stable. Follow-up TSH Elevated serum creatinine 02/04/2017 Assessment & Plan (03/16/2024 1:34 PM BOOTH MANAGER): Stable, will monitor labs. Fatty liver 10/08/2016 Assessment & Plan (03/16/2024 1:35 PM BOOTH MANAGER): Stable, will monitor labs. Heart healthy diet and routine physical exercise encouraged. Vitamin D deficiency 10/08/2016 Assessment & Plan (03/16/2024 1:36 PM BOOTH MANAGER): Stable, continue supplement. Resolved Problems Problem Noted Date Diagnosed Date Resolved Date Stage 3a chronic kidney disease 01/23/2022 01/23/2022 Screening, lipid 01/31/2018 01/31/2018 Impaired fasting glucose 02/04/201711/2023 Encounters Date Type Department Care Team Description 10/17/2024 Refill [facility] [place] [address] [facility] [facility] [place] [address] Juancho Domínguez MD Subclinical hypothyroidism 09/27/2024 External Device Data STL ABSTRACTION Provider, Abstract 09/26/2024 External Device Data [facility] ABSTRACTION Provider, Abstract from Last 3 Months Immunizations Immunization Administration Dates Next Due (ADACEL/BOOSTRIX)(10 YR UP) TDAP VACCINE, 0.5ML, IM 02/07/2015,03/20/2014 (PFIZER)(12 YR UP) COVID-19 VACCINE - EMERGENCY USE AUTHORIZATION, MRNA, [id number](PF) 30 MCG/0.3 ML IM SUSP 02/19/2021,08/06/2020,07/16/2020 (PREVNAR 20)(6 WKS UP) PNEUM OCOCCAL CONJUGATE VACCINE 20-VALENT (PCV20), POLYSACCHARIDE [id number] CONJUGATE, ADJUVANT 0.5 ML (PF) IM 02/12/2023 [...] Packs/Day Years Used Date Smoking Tobacco: Never Passive Smoke Exposure: Never Smokeless Tobacco: Never Tobacco Cessation:Counseling Given: No Alcohol Use Standard Drinks/Week Comments No 0 [...] Sign Reading Time Taken Comments Blood Pressure 148/84 06/12/2024 11:32 AM BOOTH MANAGER Pulse 100 06/12/2024 11:32 AM BOOTH MANAGER Temperature 36.9 C (98.4 F) 06/12/2024 11:32 AM BOOTH MANAGER Respiratory Rate 16 06/12/2024 11:32 AM BOOTH MANAGER Oxygen Saturation 94% 06/12/2024 11:32 AM BOOTH MANAGER Inhaled Oxygen Concentration - - Weight 81.2 kg (179 lb) 06/12/2024 11:32 AM BOOTH MANAGER Height 162.6 cm (5' 4) 06/12/2024 11:32 AM BOOTH MANAGER Body Mass Index 30.73 06/12/2024 11:32 AM BOOTH MANAGER Plan of Treatment Upcoming Encounters Date Type Department Care Team (Late st Contact Info) Description 03/02/2025 2:00 PM CDT Office Visit [facility] [place] [address] [place] [address] Juancho Domí[place] [address] [place] [address] Health Maintenance Due Date Last Done Comments [...] (2 of 2) 02/05/2020 12/11/2019 COVID-19 Vaccine (5 - 2023-2 5 season) 2024 01/28/2022, 02/19/2021, 08/06/2020, Additional [...] (AUTO ORDER) 02/11/2028 Colorectal Cancer Screening 02/11/2028 OSTEOPOROSIS SCREENING 02/23/2028 02/22/2023 PNEUMOCOCCAL VACCINE 50+ YEARS Completed 02/12/2023 INFLUENZA VACCINE Completed 03/16/2024, , 01/20/2022, Additional history exists Procedures Procedure Name Priority Date/Time Associated Diagnosis Comments HEMOGLOBIN A1C Routine 03/17/2024 9:52 AM BOOTH MANAGER Prediabetes Obesity (BMI 30.0-34.9) MAMMO 3D URIEL DIAGNOSTIC BILAT W OR WO CAD Routine 10/05/2023 3:53 PM CDT XR DEXA BONE DENSITY AXIAL 1 OR MORE SITES Routine 02/22/2023 9:46 AM CDT Post-menopausal COLONOSCOPY REPORT 02/10/2018 8: 39 AM CDT from Last 3 Months or Most Recently Relevant to Health Maintenance Results * HEMOGLOBIN A1C (03/17/2024 9:52 AM BOOTH MANAGER) HEMOGLOBIN A1C 5.6 <5.7 % of total Hgb [employer]bie Rivas Comment: For the purpose of screening for the presence of diabetes: <5.7% Consistent with the absence of diabetes 5.7-6.4% Consistent with increased risk for diabetes (prediabetes) > or =6.5% Consistent with diabetes This assay result is consistent with a decreased risk of diabetes. Currently, no consensus exists regarding use of hemoglobin A1c for diagnosis of diabetes in children. According to [place] Diabetes Association (ADA) guidelines, hemoglobin A1c <7.0% represents optimal control in non- diabetic patients. Different metrics may apply to specific patient populations. Standards of Medical Care in Diabetes(ADA). ESTIMATED AVERAGE GLUCOSE (MG/DL) 114 mg/dL comment.comZoila Rivas ESTIMATED AVERAGE GLUCOSE (MMOL/L) 6.3 mmol/L comment[email or web address] Rivas Comment: FASTING:YES FASTING: YES Test Performed at: [email or web address] [address] [address] [place] [phone] [employer] Thi Vo Blood 03/17/2024 9:52 AM BOOTH MANAGER 03/17/2024 9:54 AM BOOTH MANAGER Carla Tang SHAKE OUT WORKER CHEMISTRY ORDERABLES Final Result [facility] [phone] [place] [address] [address] [place] [phone] * MAMMO 3D URIEL DIAGNOSTIC BILAT W OR WO CAD (10/05/2023 3:53 PM CDT) Anatomical Region Laterality Modality Breast Bilateral Mammography Abstract Provider MAMMO ORDERABLES Final Result * [...] refer to the full report available in [facility] under the PACS Images tab. If a faxed copy is needed, please call [phone]. DICTATION LOCATION: [facility] Narrative 02/22/2023 12:48 PM CDT SUMMARY DEXA REPORT DATE: 02/22/2023 9:46 AM INDICATION: Postmenopausal Procedure Note Josi Velarde MD - 02/22/2023 SUMMARY DEXA REPORT DATE: 02/22/2023 9:46 AM INDICATION: Postmenopausal FINDINGS/IMPRESSION: Osteoporosis with a lowest T score of -2.5. Fracture risk is high. FRAX: 10 year probability of major osteoporotic fracture is 12.8 %. 10 year probability of hip fracture is 2.7 %. Please refer to the full report available in [facility] under the PACS Images tab. If a faxed copy is needed, please call [phone]. DICTATION LOCATION: [facility] us Juancho Domínguez MD DIAGNOSTIC IMAGING ORDERABLES Fi nal Result * COLONOSCOPY REPORT (02/10/2018 8:39 AM CDT) Narrative Procedure Note Jose Miguel Junior MD - 02/10/2018 8:38 AM CDT [facility] Endoscopy Patient Name: Oneida Barreto Procedure Date: [...] Addenda: 0 Procedure Date: 02/10/2018 8:11:38 AM [address] [address] Jose Miguel Junior MD GI PROCEDURE ORDERABLES Final Re sult from Last 3 Months or Most Recently Relevant to Health Maintenance Insurance [address] [employer] [facility] Advance Directives For more information, please contact: [phone] * Full Code (Latest Code Status on File) Date Activated Date Inactivated Comments 07/07/2018 7:06 AM 07/07/2018 11:09 AM * Full Code Date Activated Date Inactivated Comments 02/10/2018 7:34 AM 02/10/2018 11:59 AM Care Teams Insulation Nozzleman Relationship Specialty Start Date End Date Juancho Domínguez MD PCP - General Family Practice 10/08/16
--- OUTSIDE RECORDS SUMMARY | 2024-10-24 15:23 | XMS_ITS | CONTINUITY OF CARE DOCUMENT ---
Author Name yen barlow Address Unknown Organization [facility] Address [address] [address] [facility] [address] [place] [address] Phone [phone] Care Team Providers Care Waste Hand Name Role Phone yen barlow Unavailable Unavailable INSURANCE PROVIDERS Payer name Policy type / Coverage type Ana red alliance party ID [employer] [id number]
--- OUTSIDE RECORDS SUMMARY | 2024-10-24 15:23 | XMS_ITS | Encounter Summary ---
Author Organization [facility] Address [address] [place] [address] Care Team Providers Care Enrollment Clerk Name Role Phone Juancho Domínguez MD Primary Care Provider [phone] Reason for Visit * Reason Comments Clinical Consult Before Scheduling Patient Communication Encounter Details Date Type Department Care Team (Late st Contact Info) Description 06/12/2024 Telephone [facility] [place] [address] [place] [phone] Juancho Domí[place] [address] [facility] [place] [address] Clinical Consult Before Scheduling; Patient Communication Social History Tobacco Use Types Packs/Day Years Used Date Smoking Tobacco: Never Passive Smoke Exposure: Never Smokeless Tobacco: Never Alcohol Use Standard Drinks/Week Comments No 0 [...] file Not on file Not on file documented as of this encounter Miscellaneous Notes * Telephone Encounter - Dottie Dexter GOODWILL AMBASSADOR - 06/12/2024 9:36 AM CST 06/12/2024 9:36 AM Returned call and spoke with patient. Pt has recently had a few nose bleeds, beginning May 27. Not typical for pt and couldn't get nose bleed to stop, so went to who transferred her to ED, told itwas from dry air and prescribed with Afrin. 12 days later pt had another nose bleed, used Afrin andit stopped. Pt sent mmm last week and was told to use Saline nasal spray. Pt had another nose bleedlast night, this morning her sinuses are painful and feels she may have a sinus infection. Leaving for cruise Wednesday, would like to be seen regarding sinus infections sx as well as nose bleeds. Scheduled with ANDRES Talavera for today. Voiced understanding. Dottie WAHL HANDISE TEAM MANAGER * Telephone Encounter - Fadumo Mckeon - 06/12/2024 9:18 AM MERCHANDISE TEAM MANAGER Copied from [facility] #[id number]. Topic: CPA Information Request >> Jun 12, 2024 9:17 AM Fadumo Slaughter wrote: Caller is returning phone call from clinic. Caller Name: Oneida Barreto Patient/Caregiver Callback Number: Telephone Information: Clinic Left Note In Chart Is there a note from the clinic requesting the caller be transferred when they call back? No Are the credentials of the caregiver who called the patient court security officer? Yes Call Notes: Communicated information that is documented in the note. Patient wants call back HANDISE TEAM MANAGER * Telephone Encounter - Dottie Dexter LPN - 06/12/2024 9:07 AM CST 06/12/2024 9:07 AM Returned call. No answer. Left voice mail/message to return our call. If patient/caregiver calls back, contact center please inform caller to expect a return call from the clinic. Dottie WAHL HANDISE TEAM MANAGER * Telephone Encounter - Alicja Holm - 06/12/2024 8:41 AM CST Copied from [facility] #[id number]. Topic: Symptomatic Care >> Jun 12, 2024 8:38 AM Alicja S wrote: Caller has new symptoms and is seeking care. Age Range/Symptom: Adult: 18+ - Other Symptoms: nose bleed and sinus infection Does patient have any of the following other urgent symptoms: No urgent symptoms requiring warm call transfer {Patient Access Instructions Verify in Consumer View if the Clinic offers Walk In hours If no walk in hours or patient prefers to schedule, then schedule appointment with Clinic (Does notneed to be 24 - 48 hours) Search Team based scheduling for SAME DAY [166] Search Team based scheduling for OFFICE VISIT ESTABLISHED [130] Search Team based scheduling for VIDEO VISIT [4] Were you able to schedule appointment within patient's desired timeframe? No [place] Unable to schedule appointment within patient's desired timeframe. Patient declined all other options for immediate care, preferring to schedule first available. Scheduled appointment for appointmentnot scheduled no appointments until july please reach out to the patient in order to get her scheduled . If this is not clinically appropriate, please contact patient. HANDISE TEAM MANAGER documented in this encounter Plan of Treatment Upcoming Encounters Date Type Department Care Team (Late st Contact Info) Description 03/02/2025 2:00 PM CDT Office Visit [facility] [place] [address] [place] [address] Juancho Domí[place] [address] [place] [address] documented as of this encounter Visit Diagnoses Not on filedocumented in this encounter Care Teams Enrollment Clerk Relationship Specialty Start Date End Date Juancho Domínguez MD PCP - General Family Practice 10/08/16 documented as of this encounter
--- OUTSIDE RECORDS SUMMARY | 2024-10-24 15:23 | XMS_ITS | Encounter Summary ---
Author Organization [facility] Address [address] [place] [address] Care Team Providers Care Apartment Rental Agent Name Role Phone Juancho Domínguez MD Primary Care Provider [phone] Reason for Referral * Eval and Treat (Routine) - Open Specialty Diagnoses / Procedures Referred By Jeevan feng Referred To Contact Otolaryngology Diagnoses Bleeding from the nose Procedures AK OFFICE/OUTPATIENT ESTABLISHED MOD MDM 30 MIN AK OFFICE/OUTPATIENT NEW MODERATE MDM 45 MINUTES Juancho Domí[place] [address] [place] [address] Phone: tel: fax: Referral ID Status Reason Start Date Expiration Date Visits Re quested Visits Authorized [id number] Open 06/15/2024 06/15/2025 12 12 PHONE SOLICITOR SUPERVISOR Reason for Visit * Reason Comments Needs Orders Written Encounter Details Date Type Department Care Team (Late st Contact Info) Description 06/15/2024 Telephone [facility] [place] [address] [place] [address] Juancho Domí[place] [address] [place] [address] Needs Orders Written Social History Tobacco Use Types Packs/Day Years [...] encounter Miscellaneous Notes * Telephone Encounter - Sandee Mercado - 06/15/2024 9:02 AM CST Copied from [facility] #[id number]. Topic: CPA Information Request - Order or Referral Request >> Jun 15, 2024 8:59 AM Sandee Barrett wrote: Caller Name: Oneida Barreto Patient/Caregiver Callback Number:Telephone Information: Call Notes: requesting a referral Caller is requesting: New Referral Has the patient been seen for this issue? YES Requests Referral to Specialty: ENT Reason for referral (Symptoms / Diagnosis): Nose bleed Previously discussed with provider? Yes Is patient requesting a certain provider or facility? [facility] [address] [facility] Provider / Facility contact information: [phone] fax [phone] Date of Service: @240 PHONE SOLICITOR SUPERVISOR documented in this encounter Plan of Treatment Upcoming Encounters Date Type Department Care Team (Late st Contact Info) Description 03/02/2025 2:00 PM CDT Office Visit [facility] [place] [address] [place] [address] Juancho Domí[place]uez [place] [address] [place] [address] Scheduled Referrals Name Type Priority Associated Diagnoses Orde r Schedule AMB REFERRAL TO ENT Outpatient Referral Routine Bleeding from the nose Ordered: 06/15/2024 documented as of this encounter Visit Diagnoses Diagnosis Bleeding from the nose- Primary Epistaxis documented in this encounter Care Teams Apartment Rental Agent Relationship Specialty Start Date End Date Juancho Domínguez MD PCP - General Family Practice 10/08/16 documented as of this encounter
== END 2024-10-24 14:29 | disposition home or self-care (01) ==
PROVIDERS: Visit Provider Obstetrics & Gynecology
DX: Z12.31 Encounter for screening mammogram for malignant neoplasm of breast (principal)
CPT/HCPCS: 77063; 77067

== ENCOUNTER 2024-12-26 18:00 | Emergency (ER) | payer OTHER, SELFPAY ==
--- NOTE | ~2024-12-26 | XR_ITS ---
EXAMINATION: XR chest 2V 12/26/2024 18:36 INDICATION: Chest pain PROCEDURE: 2 view chest COMPARISON: 08/18/2010 FINDINGS: The lungs are clear. The cardiomediastinal silhouette is within normal limits. There are no pleural effusions. There is no pneumothorax suspected. IMPRESSION: 1: NO ACUTE CARDIOPULMONARY DISEASE. Reviewed, dictated and finalized at location A.
--- NOTE | 2024-12-26 18:01 | ECG_ITS ---
Test Date: 2024-12-26 21:57:12 Measurements Intervals [facility] Rate: 84 P: 113 IL: 159 QRS: 200 QRSD: 77 T: 76 QT: 330 QTc: 392 Interpretive Statements SINUS RHYTHM ARM LEADS REVERSED LOW VOLTAGE IN PRECORDIAL LEADS BORDERLINE ST-T WAVE ABNORMALITY- ANTEROLAT/INF LEADS BASELINE ARTIFACT- I, II, III, AVR, AVL, AVF, V1-V6 BORDERLINE ECG No previous ECG available for comparison Electronically Signed On 12-27-2024 06:12:36 CDT by Rommel Calvin D.O.
--- OUTSIDE RECORDS SUMMARY | 2024-12-26 18:03 | XMS_ITS | Clinical Summary ---
Author Organization [facility] Address [address] [place] [address] Care Team Providers Care Laminating Machine Tender Name Role Phone Juancho Domínguez MD Primary Care Provider [phone] Allergies Active Allergy Reactions Criticality Noted Date Comments Sulfa (Sulfonamide Antibiotics) Rash Low 06/11 Sulfamethoxazole-Trimethoprim Rash Low 2016 Medications cholecalciferol, vitamin D3, 1,000 unitIndications:d ose unknown Take 1,000 Units by mouth. Active oxymetazoline (AFRIN) 0.05 % [place], Non-Aerosol Administer 2 Sprays in each nostril 2 times daily. Up to 3 days Active levothyroxine 50 mcg tabletIndications :Subclinical hypothyroidism TAKE 1 TABLET BY MOUTH EVERY DAY 100 Tablet 3 10/18/19 25 Active alendronate (FOSAMAX) 70 mg tablet TAKE 1 TAB EVERY 7 DAYS ON AN EMPTY STOMACH W/ 8 OZ OF WATER BEFORE OTHER MEDS. STAY UPRIGHT FOR 30 MINS 12 Tablet 3 12/16/19 25 Active alendronate (FOSAMAX) 70 mg tablet TAKE 1 TABLET EVERY 7 DAYS. EMPTY STOMACH BEFORE OTHER MEDS,WITH 8OZ OF WATER, STAY UPRIGHT 30 MIN 14 Tablet 3 01/24/20 24 2024 Discontinued Active Problems Problem Noted Date Diagnosed Date Obesity (BMI 30.0-34.9) 03/16/2024 Assessment & Plan (03/16/2024 1:36 PM FLOOR FINISHER): Suboptimal, Heart healthy diet and routine physical exercise encouraged. History of periodontal disease 03/16/2024 Overview (03/16/2024): Cleanings Q3 mos Osteoporosis 03/02/2023 Overview (03/02/2023): Dexa 02/2023, -2.5 hip right Assessment & Plan (03/16/2024 1:35 PM FLOOR FINISHER): Stable, continue fosamax, yobani/vit D. Prediabetes 12/11/2019 Assessment & Plan (03/16/2024 1:35 PM FLOOR FINISHER): Stable, Due for routine labs. Heart healthy diet and routine physical exercise encouraged. Gastroesophageal reflux disease 06/08/2018 Assessment & Plan (03/16/2024 1:35 PM FLOOR FINISHER): Stable. Remains off PPI. Assessment & Plan (01/23/2022 5:34 PM CDT): Stable. Off PPI. Screening for colon cancer 02/10/2018 Overview (02/10/2018): 02/10/18- Colonoscopy: Negative for polyps. Repeat in 10 years. Localized osteoarthritis of right knee 8 Assessment & Plan (03/16/2024 1:35 PM FLOOR FINISHER): Managed by orthopedics, doing well with low impact exercises. Subclinical hypothyroidism 02/04/2017 Assessment & Plan (03/16/2024 1:35 PM FLOOR FINISHER): Stable. Continue levothyroxine, follow-up TSH. Assessment & Plan (02/12/2023 2:41 PM CDT): Stable. Continue levothyroxine, follow-up TSH. Assessment & Plan (01/23/2022 5:34 PM CDT): Stable. Follow-up TSH Elevated serum creatinine 02/04/2017 Assessment & Plan (03/16/2024 1:34 PM FLOOR FINISHER): Stable, will monitor labs. Fatty liver 10/08/2016 Assessment & Plan (03/16/2024 1:35 PM FLOOR FINISHER): Stable, will monitor labs. Heart healthy diet and routine physical exercise encouraged. Vitamin D deficiency 10/08/2016 Assessment & Plan (03/16/2024 1:36 PM FLOOR FINISHER): Stable, continue supplement. Resolved Problems Problem Noted Date Diagnosed Date Resolved Date Stage 3a chronic kidney disease 01/23/2022 01/23/2022 Screening, lipid 01/31/2018 01/31/2018 Impaired fasting glucose 02/04/201711/2023 Encounters Date Type Department Care Team Description 12/15/2024 [facility] [address] [place] [address] Juancho Domínguez MD 12/13/2024 External Device Data STL ABSTRACTION Provider, Abstract 12/12/2024 External Device Data STL ABSTRACTION Provider, Abstract 11/22/2024 External Device Data ST[place] ABSTRACTION Provider, Abstract 11/22/2024 External Device Data STL ABSTRACTION Provider, Abstract 11/22/2024 External Device Data ST[place] ABSTRACTION Provider, Abstract 11/21/2024 External Device Data STL ABSTRACTION Provider, Abstract 11/07/2024 External Device Data STL ABSTRACTION Provider, Abstract 10/31/2024 External Device Data STL ABSTRACTION Provider, Abstract 10/17/2024 [facility] [id number] [place] [id number] Juancho Domínguez MD Subclinical hypothyroidism 09/27/2024 External Device Data STL ABSTRACTION Provider, Abstract 09/26/2024 External Device Data STL ABSTRACTION Provider, Abstract from Last 3 Months Immunizations Immunization Administration Dates Next Due (ADACEL/BOOSTRIX)(10 YR UP) TDAP VACCINE, 0.5ML, IM 02/07/2015,03/20/2014 (PFIZER)(12 YR UP) COVID-19 VACCINE - EMERGENCY USE AUTHORIZATION, MRNA, [id number](PF) 30 MCG/0.3 ML IM SUSP 02/19/2021,08/06/2020,07/16/2020 (PREVNAR 20)(6 WKS UP) PNEUM OCOCCAL CONJUGATE VACCINE 20-VALENT (PCV20), POLYSACCHARIDE [id number] CONJUGATE, ADJUVANT 0.5 ML (PF) IM 02/12/2023 [...] Comments Blood Pressure 148/84 06/12/2024 11:32 AM FLOOR FINISHER Pulse 100 06/12/2024 11:32 AM FLOOR FINISHER Temperature 36.9 C (98.4 F) 06/12/2024 11:32 AM FLOOR FINISHER Respiratory Rate 16 06/12/2024 11:32 AM FLOOR FINISHER Oxygen Saturation 94% 06/12/2024 11:32 AM FLOOR FINISHER Inhaled Oxygen Concentration - - Weight 81.2 kg (179 lb) 06/12/2024 11:32 AM FLOOR FINISHER Height 162.6 cm (5' 4) 06/12/2024 11:32 AM FLOOR FINISHER Body Mass Index 30.73 06/12/2024 11:32 AM FLOOR FINISHER Plan of Treatment Upcoming Encounters Date Type Department Care Team (Late st Contact Info) Description 03/02/2025 2:00 PM CDT Office Visit [facility] [place] [address] [place] [address] Juancho Domí[place] [address] [place] [address] Health Maintenance Due Date Last Done [...] 10/05/19 24, 04/28/2019, 04/28/2019, Additional history exists INFLUENZA VACCINE (#1) 2024 , 02/12/2023, 01/20/2022, Additional history exists DTAP/TDAP/TD VACCINES (3 - T d or Tdap) 02/07/2025 02/07/2015, 03/20/2014 Pre-Diabetes and Diabetes Screening 03/17/2027 03/17/2024, 02/13/2023, 01/20/2022, Additional history exists COLORECTAL CANCER SCREENING (AUTO ORDER) 02/11/2028 02/10/2018, 02/10/2018 COLORECTAL SCREENING 02/11/2028 02/10/2018, 02/10/2018, 02/08/2008 Colorectal Cancer Screening (AUTO ORDER) 02/11/2028 Colorectal Cancer Screening 02/11/2028 OSTEOPOROSIS SCREENING 02/23/2028 02/22/2023 PNEUMOCOCCAL VACCINE 50+ YEARS Completed 02/12/2023 Procedures Procedure Name Priority Date/Time Associated Diagnosis Comments HEMOGLOBIN A1C Routine 03/17/2024 9:52 AM FLOOR FINISHER Prediabetes Obesity (BMI 30.0-34.9) MAMMO 3D URIEL DIAGNOSTIC BILAT W OR WO CAD Routine 10/05/2023 3:53 PM CDT XR DEXA BONE DENSITY AXIAL 1 OR MORE SITES Routine 02/22/2023 9:46 AM CDT Post-menopausal COLONOSCOPY REPORT 02/10/2018 8: 39 AM CDT from Last 3 Months or Most Recently Relevant to Health Maintenance Results * HEMOGLOBIN A1C (03/17/2024 9:52 AM FLOOR FINISHER) HEMOGLOBIN A1C 5.6 <5.7 % of total Hgb [facility] Comment: For the purpose of screening for the presence of diabetes: <5.7% Consistent with the absence of diabetes 5.7-6.4% Consistent with increased risk for diabetes (prediabetes) > or =6.5% Consistent with diabetes This assay result is consistent with a decreased risk of diabetes. Currently, no consensus exists regarding use of hemoglobin A1c for diagnosis of diabetes in children. According to [place] Diabetes Association (ADA) guidelines, hemoglobin A1c <7.0% represents optimal control in non- diabetic patients. Different metrics may apply to specific patient populations. Standards of Medical Care in Diabetes(ADA). ESTIMATED AVERAGE GLUCOSE (MG/DL) 114 mg/dL [facility] ESTIMATED AVERAGE GLUCOSE (MMOL/L) 6.3 mmol/L [facility] Comment: FASTING:YES FASTING: YES Test Performed at: [facility] [address] [place] [address] Deja Vogt Blood 03/17/2024 9:52 AM FLOOR FINISHER 03/17/2024 9:54 AM FLOOR FINISHER Carla Nallely Tang BLOOD BANK MANAGER CHEMISTRY ORDERABLES Final Result [facility] [phone] [facility] [address] [place] [address] * MAMMO 3D URIEL DIAGNOSTIC BILAT W [...] refer to the full report available in [facility] under the PACS Images tab. If a faxed copy is needed, please call [phone]. DICTATION LOCATION: [facility] Narrative 02/22/2023 12:48 PM CDT SUMMARY DEXA [...] refer to the full report available in [facility] under the PACS Images tab. If a faxed copy is needed, please call [phone]. DICTATION LOCATION: [facility] us Juancho Domínguez MD DIAGNOSTIC IMAGING ORDERABLES Fi nal Result * COLONOSCOPY REPORT (02/10/2018 8:39 AM CDT) Narrative Procedure Note Jose Miguel Junior MD - 02/10/2018 8:38 AM CDT [facility] Endoscopy Patient Name: Oneida Barreto Procedure Date: [...] Addenda: 0 Procedure Date: 02/10/2018 8:11:[address] [place] [address] Jose Miguel Junior MD GI PROCEDURE ORDERABLES Final Re sult from Last 3 Months or Most Recently Relevant to [place] [address] [employer] [place] [employer] [facility] [address] Advance Directives For more information, please contact: [phone] * Full Code (Latest Code Status on File) Date Activated Date Inactivated Comments 07/07/2018 7:06 AM 07/07/2018 11:09 AM * Full Code Date Activated Date Inactivated Comments 02/10/2018 7:34 AM 02/10/2018 11:59 AM Care Teams Laminating Machine Tender Relationship Specialty Start Date End Date Juancho Domínguez MD PCP - General Family Practice 10/08/16
--- OUTSIDE RECORDS SUMMARY | 2024-12-26 18:03 | XMS_ITS | Encounter Summary ---
Author Organization [facility] Address [address] [place] [address] Care Team Providers Care Insurance Commissioner Name Role Phone Juancho Domínguez MD Primary Care Provider [phone] Reason for Referral * Eval and Treat (Routine) - Open Specialty Diagnoses / Procedures Referred By Jeevan feng Referred To Contact Otolaryngology Diagnoses Bleeding from the nose Procedures ND OFFICE/OUTPATIENT ESTABLISHED MOD MDM 30 MIN ND OFFICE/OUTPATIENT NEW MODERATE MDM 45 MINUTES Juancho Domí[place] [address] [address] [place] [address] Phone: tel: fax: Referral ID Status Reason Start Date Expiration Date Visits Re quested Visits Authorized [id number] Open 06/15/2024 06/15/2025 12 12 Reason for Visit * Reason Comments Needs Orders Written Encounter Details Date Type Department Care Team (Late st Contact Info) Description 06/15/2024 Telephone [facility] Primary [place] [address] [place] [address] Juancho Domí[place] [address] [place] [address] Needs Orders Written Social [...] 06/15/2024 9:02 AM CST Copied from [facility] #[id number]. Topic: CPA Information Request - Order or [...] patient requesting a certain provider or facility? [facility] [address] Pope Provider / Facility contact information: [phone] fax [phone] Date of Service: @240 documented in this encounter Plan of Treatment Upcoming Encounters Date Type Department Care Team (Late st Contact Info) Description 03/02/2025 2:00 PM CDT Office Visit [facility] Primary [place] [address] [place] [address] Juancho Domí[place] [address] [address] [place] [address] Scheduled Referrals Name Type Priority Associated Diagnoses Orde r Schedule AMB REFERRAL TO ENT Outpatient Referral Routine Bleeding from the nose Ordered: 06/15/2024 documented as of this encounter Visit Diagnoses Diagnosis Bleeding from the nose- Primary Epistaxis documented in this encounter Care Teams Insurance Commissioner Relationship Specialty Start Date End Date Juancho Domínguez MD PCP - General Family Practice 10/08/16 documented as of this encounter
[2024-12-26 18:06] VITALS: BP 152/77; PULSE 111; RESP 16; TEMP 37.3; O2SAT 96
[2024-12-26 18:22] LABS: Hematocrit 42.8 % (37.0-47.0); Hemoglobin 14.1 g/dL (12.0-15.0); Immature Granulocyte Percent A 0.2 % (0-0.5); Lymphocytes Absolute Auto 1.60 K/mm3 (0.9-3.2); Mean Corpuscular HGB Conc 32.9 g/dl (32-36); Mean Corpuscular Hemoglobin 30.3 pg (26-34); Mean Corpuscular Volume 92.0 fl (80-100); Nucleated Red Blood Cells Absolute Auto 0.000 K/mm3 (0.0-0.012); Nucleated Red Blood Cells Perc 0.0 % (0.0-0.2); Platelet Count Result 204 k/mm3 (150-375); Red Blood Count 4.65 M/mm3 (4.2-5.4); White Blood Count 6.1 K/mm3 (4.5-10.0)
[2024-12-26 18:32] LABS: Alanine Aminotransferase 42 U/L (6-35); Albumin Level 4.5 g/dL (3.5-5.1); Alkaline Phosphatase 51 U/L (38-126); Anion Gap 8 mmol/L (4-12); Aspartate Amino Transferase 38 U/L (14-36); Bilirubin,Total 0.6 mg/dL (0.2-1.3); Blood Urea Nitrogen 17 mg/dL (7-17); Calcium 9.8 mg/dL (8.4-10.2); Carbon Dioxide 25 mmol/L (22-30); Chloride 102 mmol/L (98-107); Estimated CRCL calculation 50 ml/min; Estimated Glomerular Filt Rate 57; Glucose 160 mg/dL (65-110); Lipase 90 U/L (23-300); Potassium 4.0 mmol/L (3.4-5.0); Sodium 135 mmol/L (137-145); Total Protein 8.3 g/dL (6.3-8.2)
[2024-12-26 18:33] LABS: INR 1.0; Prothrombin Time 13.4 Seconds (11.1-14.7)
[2024-12-26 18:35] LABS: Partial Thromboplastin Time 24.8 Seconds (22.3-36.8)
[2024-12-26 18:43] LABS: Troponin I < 0.012 ng/mL (0.000-0.034)
--- NOTE | 2024-12-26 19:17 | ED.CHESTPAIN ---
HPI - Chest Pain General Chief Complaint: Chest Pain <Annmarie Howe PA-C - Last Filed: 12/27/24 10:26> Stated Complaint: Chest pain <Annmarie Howe PA-C - Last Filed: 12/27/24 10:26> Time Seen by Provider: 12/26/24 19:17 <Annmarie Howe PA-C - Last Filed: 12/27/24 10:26> Focused HPI: This is a 69 year old female that present to the ER for chest pain. Reports back pain that has now moved to substernal chest pain. Reports some indigestion. Symptoms starting earlier today. No history of CAD. She is not a smoker. GENERAL: Well-appearing, well-nourished, and in no acute distress. HEAD: Normocephalic, atraumatic. CHEST: Clear to auscultation. ?No respiratory distress. HEART: Regular rate and rhythm.? NEURO: ?Alert and oriented x3. Patient screened in triage and initial orders placed.? ?Additional care and disposition to be based upon?diagnostic testing and treatment. <Annmarie Howe PA-C - Last Filed: 12/27/24 10:26> History of Present Illness HPI narrative: I agree with the above HPI <Saad Coleman MD - Last Filed: 12/27/24 05:12> Related Data Allergies/Adverse Reactions: Allergies Allergy/AdvReac Type Severity Reaction Status Date / Time Sulfa (Sulfonamide Allergy Mild Itching Verified 12/26/24 18:07 Antibiotics) <Annmarie Howe PA-C - Last Filed: 12/27/24 10:26> Review of Systems Review of Systems: All systems reviewed & are unremarkable except as noted in HPI and below <Saad Coleman MD - Last Filed: 12/27/24 05:12> PMFSH Past Medical History Medical History: Medical History (Updated 12/27/24 @ 10:26 by Annmarie Howe PA-C) History of hypothyroidism <Annmarie Howe PA-C - Last Filed: 12/27/24 10:26> Exam Narrative: APPEARANCE: Well appearing, no pain, no distress, well-nourished. HEAD: normocephalic, atraumatic. EYES: PERRLA/EOMI, conjunctivae clear. NOSE: Normal no drainage EARS:TMS clear with good light reflex. THROAT: Pharynx clear, no exudate. NECK: Supple. No adenopathy, no masses. RESPIRATORY: Airway patent, respirations nonlabored. Clear to auscultation bilaterally, no rales, rhonchi, wheezing. CARDIOVASCULAR: Regular rate and rhythm without murmurs rubs or gallops. ABDOMINAL: Soft, nontender, nondistended, normal bowel sounds MUSCULOSKELETAL: Moves all extremities. Strength/ROM intact, No edema, No calf tenderness. NEURO: Alert. Cranial nerves II through XII intact. Good gait. Good coordination SKIN: Warm, dry. Normal Color <Saad Coleman MD - Last Filed: 12/27/24 05:12> Course Vital Signs Vital signs: Vital Signs Temperature 99.2 F 12/26/24 18:06 Pulse Rate 111 H 12/26/24 18:06 Respiratory Rate 16 12/26/24 18:06 Blood Pressure 152/77 H 12/26/24 18:06 Pulse Oximetry 96 12/26/24 18:06 Oxygen Delivery Room Air 12/26/24 18:06 Temperature 99.2 F 12/26/24 18:06 Pulse Rate 67 12/26/24 23:33 Respiratory Rate 18 12/26/24 23:33 Blood Pressure 100/81 12/26/24 23:33 Pulse Oximetry 99 12/26/24 23:33 Oxygen Delivery Room Air 12/26/24 18:06 <Annmarie Howe PA-C - Last Filed: 12/27/24 10:26> Vital Signs Temperature 99.2 F 12/26/24 18:06 Pulse Rate 111 H 12/26/24 18:06 Respiratory Rate 16 12/26/24 18:06 Blood Pressure 152/77 H 12/26/24 18:06 Pulse Oximetry 96 12/26/24 18:06 Oxygen Delivery Room Air 12/26/24 18:06 Temperature 99.2 F 12/26/24 18:06 Pulse Rate 67 12/26/24 23:33 Respiratory Rate 18 12/26/24 23:33 Blood Pressure 100/81 12/26/24 23:33 Pulse Oximetry 99 12/26/24 23:33 Oxygen Delivery Room Air 12/26/24 18:06 <Saad Coleman MD - Last Filed: 12/27/24 05:12> MDM - Chest Pain MDM Narrative Medical decision making narrative: 69-year-old female presents emergency department for evaluation for back pain and chest pain. Patient reports the back pain was secondary to an injury yesterday. Patient then had some short lasting chest pain today that is now fully resolved. Patient is currently afebrile with no leukocytosis hemoglobin of 14.1. INR is 1.0. Patient had negative serial troponins. Chest x-ray shows no acute cardiopulmonary abnormality. patient was up to the results of her workup. Patient was encouraged close follow-up with her primary care physician for additional outpatient cardiac testing. All questions concerns were addressed. <Saad Coleman MD - Last Filed: 12/27/24 05:12> Differential Diagnosis Differential diagnosis: Likely fracture of rib, pneumothorax, unstable angina pectoris, atypical chest pain, st elevation myocardial infarction, costochondritis, chest pain and biliary colic <Saad Coleman MD - Last Filed: 12/27/24 05:12> Lab Data Attestation: I reviewed the patient's lab results. <Saad Coleman MD - Last Filed: 12/27/24 05:12> Result diagrams: 12/26/24 18:15 12/26/24 18:15 <Annmarie Howe PA-C - Last Filed: 12/27/24 10:26> Labs: Lab Results 12/26/24 12/26/24 Range/Units 18:15 22:01 WBC 6.1 (4.5-10.0) K/mm3 RBC 4.65 (4.2-5.4) M/mm3 Hgb 14.1 (12.0-15.0) g/dL Hct 42.8 (37.0-47.0) % MCV 92.0 (80-100) fl MCH 30.3 (26-34) pg MCHC 32.9 (32-36) g/dl RDW 12.2 (11.5-14.5) % Plt Count 204 (150-375) k/mm3 MPV 10.1 (7.4-10.4) fl Immature Gran % (Auto) 0.2 (0-0.5) % Neut % (Auto) 66.3 (45.5-73.1) % Lymph % (Auto) 26.4 (18.3-44.2) % [place] % (Auto) 5.8 (2.6-8.5) % Eos % (Auto) 1.0 (0-4.4) % Baso % (Auto) 0.3 (0.2-1.2) % Lymph # (Auto) 1.60 (0.9-3.2) K/mm3 [place] # (Auto) 0.4 (0.1-0.6) K/mm3 Eos # (Auto) 0.1 (0-0.3) K/mm3 Baso # (Auto) 0.0 (0.0-0.1) K/mm3 Abs Immat Gran (auto) 0.01 (0.00-0.031) K/mm3 Absolute Neuts (auto) 4.0 (1.3-6.7) K/mm3 Absolute Nucleated RBC 0.000 (0.0-0.012) K/mm3 Nucleated RBC % 0.0 (0.0-0.2) % PT 13.4 (11.1-14.7) Seconds INR 1.0 APTT 24.8 (22.3-36.8) Seconds Sodium 135 L (137-145) mmol/L Potassium 4.0 (3.4-5.0) mmol/L Chloride 102 (98-107) mmol/L Carbon Dioxide 25 (22-30) mmol/L Anion Gap 8 (4-12) mmol/L BUN 17 (7-17) mg/dL Creatinine 0.97 (0.7-1.0) mg/dL Estim Creat Clear Calc 50 ml/min Estimated GFR 57 L (59 - ) Glucose 160 H (65-110) mg/dL Calcium 9.8 (8.4-10.2) mg/dL Total Bilirubin 0.6 (0.2-1.3) mg/dL AST 38 H (14-36) U/L ALT 42 H (6-35) U/L Alkaline Phosphatase 51 (38-126) U/L Troponin I < 0.012 < 0.012 (0.000-0.034) ng/mL Total Protein 8.3 H (6.3-8.2) g/dL Albumin 4.5 (3.5-5.1) g/dL Lipase 90 (23-300) U/L <Annmarie Hoew PA-C - Last Filed: 12/27/24 10:26> Lab Results 12/26/24 12/26/24 Range/Units 18:15 22:01 WBC 6.1 (4.5-10.0) K/mm3 RBC 4.65 (4.2-5.4) M/mm3 Hgb 14.1 (12.0-15.0) g/dL Hct 42.8 (37.0-47.0) % MCV 92.0 (80-100) fl MCH 30.3 (26-34) pg MCHC 32.9 (32-36) g/dl RDW 12.2 (11.5-14.5) % Plt Count 204 (150-375) k/mm3 MPV 10.1 (7.4-10.4) fl Immature Gran % (Auto) 0.2 (0-0.5) % Neut % (Auto) 66.3 (45.5-73.1) % Lymph % (Auto) 26.4 (18.3-44.2) % [place] % (Auto) 5.8 (2.6-8.5) % Eos % (Auto) 1.0 (0-4.4) % Baso % (Auto) 0.3 (0.2-1.2) % Lymph # (Auto) 1.60 (0.9-3.2) K/mm3 [place] # (Auto) 0.4 (0.1-0.6) K/mm3 Eos # (Auto) 0.1 (0-0.3) K/mm3 Baso # (Auto) 0.0 (0.0-0.1) K/mm3 Abs Immat Gran (auto) 0.01 (0.00-0.031) K/mm3 Absolute Neuts (auto) 4.0 (1.3-6.7) K/mm3 Absolute Nucleated RBC 0.000 (0.0-0.012) K/mm3 Nucleated RBC % 0.0 (0.0-0.2) % PT 13.4 (11.1-14.7) Seconds INR 1.0 APTT 24.8 (22.3-36.8) Seconds Sodium 135 L (137-145) mmol/L Potassium 4.0 (3.4-5.0) mmol/L Chloride 102 (98-107) mmol/L Carbon Dioxide 25 (22-30) mmol/L Anion Gap 8 (4-12) mmol/L BUN 17 (7-17) mg/dL Creatinine 0.97 (0.7-1.0) mg/dL Estim Creat Clear Calc 50 ml/min Estimated GFR 57 L (59 - ) Glucose 160 H (65-110) mg/dL Calcium 9.8 (8.4-10.2) mg/dL Total Bilirubin 0.6 (0.2-1.3) mg/dL AST 38 H (14-36) U/L ALT 42 H (6-35) U/L Alkaline Phosphatase 51 (38-126) U/L Troponin I < 0.012 < 0.012 (0.000-0.034) ng/mL Total Protein 8.3 H (6.3-8.2) g/dL Albumin 4.5 (3.5-5.1) g/dL Lipase 90 (23-300) U/L <Saad Coleman MD - Last Filed: 12/27/24 05:12> Imaging Data Radiologist's impression: Impressions Chest X-Ray 12/26/24 18:38 IMPRESSION: 1: NO ACUTE CARDIOPULMONARY DISEASE. <Saad Coleman MD - Last Filed: 12/27/24 05:12> ECG Data EKG #1: EKG Interpretation: normal rate, sinus rhythm, no ectopy, non-specific ST changes, normal QT and NL axis <Saad Coleman MD - Last Filed: 12/27/24 05:12> Critical Care Time Critical Care Time Critical Care Time: No <Annmarie Howe PA-C - Last Filed: 12/27/24 10:26> Discharge Plan Discharge Clinical Impression: Chest pain Qualifiers: Chest pain type: unspecified Qualified Code(s): R07.9 - Chest pain, unspecified Back pain Qualifiers: Back pain location: thoracic back pain Chronicity: acute Back pain laterality: midline Qualified Code(s): M54.6 - Pain in thoracic spine <ALICE Lee Last Filed: 12/27/24 10:26> Patient Disposition: Home <ALICE Lee Filed: 12/27/24 10:26> Condition: Stable <Annmarie Howe PA-C - Last Filed: 12/27/24 10:26> Instructions: Antibiotic Form, Chest Pain (ED), Back Pain (ED) <Annmarie Howe PA-C - Last Filed: 12/27/24 10:26> Additional Instructions: Tylenol and ibuprofen for pain control. Flexeril as needed for muscle spasm. Have close follow-up with your primary care physician for additional outpatient cardiac testing. If you have any worsening symptoms then please call or return to the emergency department. <Annmarie Howe PA-C - Last Filed: 12/27/24 10:26> Patient Language: Liberian <Annmarie Howe PA-C - Last Filed: 12/27/24 10:26> Prescriptions: New cyclobenzaprine 10 mg tablet 10 mg PO BID PRN (Reason: muscle spasm) Qty: 14 0RF No Action amoxicillin-pot clavulanate 875-125 mg tablet 1 tablet PO Q12H Qty: 20 0RF oxymetazoline [12 Hour Nasal Relief [place]] 0.05 % spray,non-aerosol 2 spray intranasal Q12H PRN (Reason: nasal congestion) 4 Days Qty: 22 0RF <Annmarie Howe PA-C - Last Filed: 12/27/24 10:26> Follow-up/Referrals: PHYSICIAN NOT ON STAFF,NONSTAFF [Primary Care Provider] <Annmarie Howe PA-C - Last Filed: 12/27/24 10:26> Quality HEART score for chest pain patients History: slightly suspicious <Saad Coleman MD - Last Filed: 12/27/24 05:12> ECG: normal <Saad Coleman MD - Last Filed: 12/27/24 05:12> Age: > or = to 65 years <Saad Coleman MD - Last Filed: 12/27/24 05:12> Risk factors: 1 or 2 risk factors <Saad Coleman MD - Last Filed: 12/27/24 05:12> Troponin: < or = to 1x normal limit <Saad Coleman MD - Last Filed: 12/27/24 05:12> Heart score: 3 <Annmarie Howe PA-C - Last Filed: 12/27/24 10:26> 3 <Saad Coleman MD - Last Filed: 12/27/24 05:12>
[2024-12-26 21:32] VITALS: PULSE 86
[2024-12-26 21:33] VITALS: BP 115/44; PULSE 80; RESP 16; O2SAT 99
--- NOTE | 2024-12-26 21:37 | ECG_ITS ---
Test Date: 2024-12-26 22:04:34 Measurements Intervals [place] Rate: 90 P: 44 SC: 154 QRS: -17 QRSD: 80 T: 72 QT: 335 QTc: 411 Interpretive Statements SINUS RHYTHM CONSIDER RIGHT VENTRICULAR CONDUCTION DELAY LOW QRS VOLTAGE IN PRECORDIAL LEADS POSSIBLE ANTERIOR MYOCARDIAL INFARCTION , OF INDETERMINATE AGE ST-T WAVE ABNORMALITY IN ANTEROLATERAL LEADS- CONSIDER ISCHEMIA BASELINE ARTIFACT- I, II, AVR, AVL, AVF, V1 ABNORMAL ECG Compared to ECG 12/26/2024 21:57:12 POSSIBLE ISCHEMIA NOW PRESENT Electronically Signed On 12-27-2024 06:14:27 CDT by Rommel Calvin D.O.
[2024-12-26 22:30] LABS: Troponin I < 0.012 ng/mL (0.000-0.034)
[2024-12-26 22:36] VITALS: BP 118/45; PULSE 82; RESP 18; O2SAT 98
[2024-12-26 23:33] VITALS: BP 100/81; PULSE 67; RESP 18; O2SAT 99
== END 2024-12-26 23:34 | disposition home or self-care (01) ==
PROVIDERS: Student in an Organized Health Care Education/Training Program; Emergency Provider Emergency Medicine
DX: R07.2 Precordial pain (principal); M54.6 Pain in thoracic spine; E03.9 Hypothyroidism, unspecified; R94.31 Abnormal electrocardiogram [ECG] [EKG]
CPT/HCPCS: 36415; 71046; 80053; 83690; 84484; 85025; 85610; 85730; 93005; 99284